=== PATIENT | female | born 1940 | race Caucasian/White ===

== ENCOUNTER 2018-06-18 13:03 | Emergency (ER) | payer OTHER ==
[~2018-06-18] VITALS: Ht 160 cm; Wt 80.9 kg
[~2018-06-18 13:03] MED LIST: AMLODIPINE BESYL5 MG PO; ANASTROZOLE1 MG PO; BACTRIM,SEPT1 TABLET PO; CENTRUM SILVER1 EAC3 PO; CIPRO500 MG PO; GEMFIBROZIL600 MG PO; KLOR-CON 1010 ME1 PO; LASIX40 MG PO; METFORMIN HCL500 MG PO; METOPROLOL TAR100 MG PO; OMEPRAZOLE10 M1 PO; PANTOPRAZOLE SO40 MG PO; PLAVIX75 MG PO; SILVADENE20 GM TP; SIMVASTATIN40 MG PO; TYLENOL EXTRA500 MG PO; TYLENOL REGULA325 MG PO
[2018-06-18 16:14] VITALS: BP 165/77
== END 2018-06-18 16:16 | disposition home or self-care (01) ==
LOC: EME 13:03
DX: S93.401A Sprain of unspecified ligament of right ankle, initial encounter (principal); S86.911A Strain of unspecified muscle(s) and tendon(s) at lower leg level, right leg, initial encounter; W10.9XXA Fall (on) (from) unspecified stairs and steps, initial encounter; Y92.009 Unspecified place in unspecified non-institutional (private) residence as the place of occurrence of the external cause; M51.35 Other intervertebral disc degeneration, thoracolumbar region; M50.30 Other cervical disc degeneration, unspecified cervical region; M25.774 Osteophyte, right foot; M25.461 Effusion, right knee; R93.7 Abnormal findings on diagnostic imaging of other parts of musculoskeletal system; E78.5 Hyperlipidemia, unspecified; Z79.02 Long term (current) use of antithrombotics/antiplatelets; Z86.73 Personal history of transient ischemic attack (TIA), and cerebral infarction without residual deficits; Z85.3 Personal history of malignant neoplasm of breast; Z88.6 Allergy status to analgesic agent; Z88.5 Allergy status to narcotic agent
CPT/HCPCS: 70450; 72125; 72128; 72131; 73564; 73610; 73630; 99281; 99283